=== PATIENT | female | born 1955 | race Caucasian/White ===

== ENCOUNTER 2017-07-20 13:02 | Inpatient (IN) | payer MEDICARE ==
[~2017-07-20] VITALS: Ht 172.7 cm; Wt 101.7 kg
[~2017-07-20 13:02] MED LIST: TYLENOL WITH C1 EACH PO
[2017-07-20] MEDS ORDERED: PIPER-TAZ 3.375 GM 100 ML IV STA (13:47)
[2017-07-20] MEDS ORDERED: VANCOMYCIN 1GM/NS 250 ML 250 ML IV SCH (14:45)
[2017-07-20] MEDS ORDERED: AMITRIPTYLINE H10 MG PO (16:37)
[2017-07-20] MEDS ORDERED: JANUVIA100 MG PO (16:39)
[2017-07-20] MEDS ORDERED: VICTOZA 2-0.6 MG/0.1 SQ (16:39)
[2017-07-20] MEDS ORDERED: ULTRAM50 MG PO (16:41)
[2017-07-20] MEDS ORDERED: DIAZEPAM5 MG PO (16:46)
[2017-07-20] MEDS ORDERED: CEFUROXIME AXETIL 250 MG TAB PO SCH (17:00)
--- NOTE | 2017-07-20 17:24 | History and Physical ---
CHIEF COMPLAINT: "I keep falling down". HISTORY OF PRESENT ILLNESS: This is a 61-year-old white woman who presents to [facility] emergency room with complaints of recent falls. The patient states in the last month she has had 3 falls. The first fall was due to lightheadedness and dizziness. Her 2nd and 3rd falls were mechanical in nature. She states her last fall, which occurred 4 days prior to visit, resulted in a laceration of plantar aspect of her right 5th toe. The patient was seen in her primary care physician's office earlier today, namely myself, Dr. Mcgraw, and she was diagnosed with orthostasis secondary to autonomic dysfunction. The patient has a history of type 2 diabetes mellitus with severe diabetic peripheral neuropathy. The patient is also having tobacco disorder. The patient states in the last 4 days, she has had redness and swelling of her right foot that has moved superiorly. The patient denied any history of fever or chills, but states she does feel ill. Blood work done today revealed a white blood cell count of 13,400 with 72% segmented neutrophils. Hemoglobin 13.4 grams per dL. The patient was found to have a BUN and creatinine of 12 and 0.6 respectively. AST and ALT were 50 and 53 respectively. Potassium 3.5. X-ray of the right foot did not reveal any fracture or malalignment, but did reveal mild degenerative spurring at the plantar fascial origin. The patient was admitted for further evaluation and treatment. REVIEW OF SYSTEMS: GENERAL: No fever or chills, but the patient states she felt ill for the last 2 days. HEENT: No headaches, no vision changes CARDIOVASCULAR: No chest pain, shortness of breath or cough. GI: No nausea, vomiting or constipation. : No UTI symptoms. NEUROMUSCULAR: Complains of complete numbness in her feet as well as her hands. The patient states that she has had episodes of lightheadedness and dizziness when she stands up abruptly. PAST MEDICAL HISTORY: 1. Type 2 diabetes mellitus with severe diabetic peripheral neuropathy. 2. Tobacco abuse. 3. Obesity. 4. Fatty liver disease. 5. Hypertriglyceridemia. 6. Vitamin D deficiency. 7. Restless leg syndrome. 8. Orthostasis secondary to autonomic dysfunction. 9. Autonomic dysfunction secondary to diabetic peripheral neuropathy. PAST SURGICAL HISTORY: 1. section x3. 2. Left foot surgery (tendon release). 3. Laparoscopic cholecystectomy. 4. Total abdominal hysterectomy. ALLERGIES: 1. SULFA ANTIBIOTICS. 2. ASPIRIN. FAMILY HISTORY: Noncontributory. SOCIAL HISTORY: She is single and lives with her mother. She has 3 adult children. The patient is unemployed and receiving disability benefits. The patient denies any alcohol use, but she smokes tobacco heavily. HOME MEDICATIONS: 1. Amitriptyline 200 mg nightly. 2. Victoza 1.8 mg subcutaneously daily. 3. Januvia 100 mg daily. 4. Invokana 300 mg daily. 5. Tramadol 50 mg b.i.d. p.r.n. pain. 6. Diazepam 10 mg nightly p.r.n. insomnia. PHYSICAL EXAMINATION GENERAL: She is awake and alert and oriented. She is disheveled and unkempt. VITAL SIGNS: Blood pressure 128/58 supine and standing it is 80/42. Pulse lying down is 88, standing is 75. Respiratory rate 16. Oxygen saturation 95% on room air. Temperature 98.3. Height is 5 feet 7 inches, weight is 226 pounds, calculated body mass index of 34. Nonfasting finger stick glucose is 257. INTEGUMENT: Skin is warm and dry. No pallor, jaundice, diaphoresis. HEENT: Anicteric sclerae with moist mucous membranes. The patient has hoarse smoker's voice. NECK: Supple. CARDIOVASCULAR: Distant heart sounds, tachycardic rate and regular rhythm. LUNGS: No rales and no rhonchi. No wheezes. ABDOMEN: Obese, benign. EXTREMITIES: No edema. The patient has tobacco-stained finger nails. She has severe onychomycosis of bilateral feet. The patient has a deep laceration in the plantar aspect of her right 5th toe and there is surrounding erythema on the right foot, particularly the dorsal aspect which moves superiorly to the right lower leg. No pinprick sensation in the plantar aspect of bilateral feet. DIAGNOSES 1. Right foot laceration with surrounding cellulitis. 2. Type 2 diabetes mellitus with diabetic peripheral neuropathy. 3. Tobacco abuse. 4. Orthostasis secondary to autonomic dysfunction. 5. Autonomic dysfunction secondary to diabetic peripheral neuropathy. 6. Obesity. Calculated body mass index 34. 7. Fatty liver disease. PLAN: 1. Highly recommend tobacco cessation. 2. Wound care to the right fifth toe laceration. 3. Intravenous antibiotics for the patient's right foot cellulitis. 4. Blood glucose control. I spent 45 minutes in the care of this patient. Job#: [id number] GH
[2017-07-20] MEDS: NICOTINE 21 MG/EA PATCH TOP SCH (17:30)
[2017-07-20] MEDS: CEFEPIME HCL 1 GM VIAL IV SCH (17:50)
[2017-07-20] MEDS ORDERED: invokana PO (17:53)
[2017-07-20 17:55] VITALS: BP 133/75
[2017-07-20 18:00] VITALS: BP 133/75
[2017-07-20] MEDS ORDERED: DEXTROSE 50% SYRINGE 50 ML IV PRN (18:15)
[2017-07-20] MEDS: INSULIN LISPRO 100 UNIT/1 ML 3ML VIAL SQ SCH ×2 (18:30→21:33)
[2017-07-20] MEDS: VANCOMYCIN 1GM/NS 250 ML 250 ML IV SCH (18:30)
[2017-07-20 20:00] VITALS: BP 126/77
[2017-07-20 20:11] VITALS: BP 126/77
[2017-07-20] MEDS ORDERED: AMITRIPTYLINE HCL 10 MG TAB PO SCH (21:00)
[2017-07-20] MEDS: DIAZEPAM 5 MG TAB PO SCH (21:33)
[2017-07-20] MEDS: AMITRIPTYLINE HCL 25 MG TAB PO SCH (21:33)
[2017-07-21] VITALS (7 sets, daily range): BP systolic 108–140; BP diastolic 58–83
[2017-07-21] MEDS: CEFEPIME HCL 1 GM VIAL IV SCH ×2 (04:52→17:15)
[2017-07-21] MEDS: VANCOMYCIN 1GM/NS 250 ML 250 ML IV SCH ×2 (04:52→17:15)
[2017-07-21 07:01] LABS: BASOPHILS % 0.2 % (0.0-1.0); EOSINOPHILS # (AUTO) 0.1 (0.0-0.4); EOSINOPHILS % 0.8 % (0.0-6.0); HEMATOCRIT 35.6 % (34.2-44.1); HEMOGLOBIN 11.6 g/dL (12.0-16.0); LYMPHOCYTES # (AUTO) 3.5 (1.0-3.2); LYMPHOCYTES % 26.6 % (18.0-39.1); MEAN CORPUSCULAR HEMOGLOBIN 31.4 pg (28-32); MEAN CORPUSCULAR HGB CONC 32.6 g/dL (31-35); MEAN CORPUSCULAR VOLUME 96.2 fL (81-99); MONOCYTES # (AUTO) 0.8 (0.2-0.8); MONOCYTES % 5.7 % (4.4-11.3); NEUTROPHILS # (AUTO) 8.8 (2.1-6.9); NEUTROPHILS % 66.2 % (38.7-80.0); PLATELET COUNT 185 x10e3/uL (140-360); RED CELL DISTRIBUTION WIDTH 14.4 % (11.7-14.4)
[2017-07-21 07:31] LABS: ALANINE AMINOTRANSFERASE 46 IU/L (0-55); ALBUMIN 2.7 g/dL (3.5-5.0); ALBUMIN/GLOBULIN RATIO 0.8 (0.8-2.0); ALKALINE PHOSPHATASE 84 IU/L (40-150); ANION GAP 11.5 mmol/L (8-16); BLOOD UREA NITROGEN 13 mg/dL (7-26); BUN/CREATININE RATIO 17 (6-25); CALCIUM 8.4 mg/dL (8.4-10.2); CARBON DIOXIDE 25 mmol/L (22-29); CHLORIDE 105 mmol/L (98-107); CREATININE, SERUM 0.77 mg/dL (0.57-1.11); EST GLOMERULAR FILTRATION RATE > 60 ML/MIN (60-); GLUCOSE 143 mg/dL (74-118); POTASSIUM 3.5 mmol/L (3.5-5.1); SODIUM 138 mmol/L (136-145)
[2017-07-21] MEDS: INSULIN LISPRO 100 UNIT/1 ML 3ML VIAL SQ SCH ×4 (08:29→21:00)
[2017-07-21] MEDS: SITAGLIPTIN 100 MG TAB PO SCH (08:45)
[2017-07-21] MEDS: CANAGLIFLOZIN 100 MG TABLET PO SCH (08:45)
[2017-07-21] MEDS ORDERED: TRAMADOL HCL 50 MG TAB PO PRN (09:00)
[2017-07-21] MEDS ORDERED: DIAZEPAM 5 MG TAB PO SCH (09:00)
[2017-07-21] MEDS ORDERED: INVOKANA 100 MG PO SCH (09:00)
[2017-07-21] MEDS ORDERED: MUPIROCIN 2% OINT 22 GM TUBE TOP SCH (12:00)
[2017-07-21] MEDS: MUPIROCIN 2% OINT 22 GM TUBE TOP SCH (13:56)
[2017-07-21] MEDS: NICOTINE 21 MG/EA PATCH TOP SCH (17:15)
--- NOTE | 2017-07-21 17:50 | Progress Note ---
DATE: INTERNAL MEDICINE PROGRESS NOTE SUBJECTIVE: Patient is sleeping right now. OBJECTIVE VITAL SIGNS: Blood pressure 126/66, temperature 96.8, heart rate 76 per minute, respiratory rate 18 per minute, and oxygen saturation 96%. EXTREMITIES: Decreased redness of the right foot. LABORATORY STUDIES: On the BMP, sodium 138, potassium 3.5, chloride 105, CO2 25, BUN 13, creatinine 0.77, and glucose 143. On the CBC, white blood count 13.2, hemoglobin 11.6, hematocrit 35.6, and platelet count 185,000. AST 35, ALT 46, total bilirubin 0.6, and alkaline phosphatase 84. FINAL IMPRESSION 1. Right foot cellulitis. 2. Diabetes mellitus type 2 with diabetic neuropathy. 3. Tobacco abuse. 4. Fatty liver disease. PLAN OF TREATMENT: Continue vancomycin 1 gram IV twice a day. Cefepime 1 gram IV twice a day. Nicotine patch 21 mg q. 24h. once a day. Continue monitoring blood sugar a.c. and at bedtime. Continue canagliflozin 100 mg daily, diazepam 10 mg at bedtime, Januvia 100 mg daily, tramadol 50 mg twice a day as needed, amitriptyline 200 mg at bedtime, and mupirocin 1 application twice a day. Job#: [id number] JAYESH
[2017-07-21] MEDS: AMITRIPTYLINE HCL 25 MG TAB PO SCH (21:00)
[2017-07-21] MEDS: DIAZEPAM 5 MG TAB PO SCH (21:00)
[2017-07-22] VITALS (7 sets, daily range): BP systolic 123–144; BP diastolic 71–97
[2017-07-22] MEDS: CEFEPIME HCL 1 GM VIAL IV SCH ×2 (04:30→16:56)
[2017-07-22] MEDS: VANCOMYCIN 1GM/NS 250 ML 250 ML IV SCH ×2 (04:30→16:56)
[2017-07-22 07:27] LABS: BASOPHILS % 0.3 % (0.0-1.0); EOSINOPHILS # (AUTO) 0.1 (0.0-0.4); EOSINOPHILS % 1.2 % (0.0-6.0); HEMOGLOBIN 12.3 g/dL (12.0-16.0); LYMPHOCYTES # (AUTO) 3.7 (1.0-3.2); MEAN CORPUSCULAR HEMOGLOBIN 31.1 pg (28-32); MEAN CORPUSCULAR HGB CONC 32.4 g/dL (31-35); MONOCYTES # (AUTO) 0.7 (0.2-0.8); MONOCYTES % 5.6 % (4.4-11.3); NEUTROPHILS # (AUTO) 7.3 (2.1-6.9); NEUTROPHILS % 61.1 % (38.7-80.0); PLATELET COUNT 190 x10e3/uL (140-360); RED BLOOD COUNT 3.96 x10e6/uL (3.6-5.1); RED CELL DISTRIBUTION WIDTH 14.4 % (11.7-14.4)
[2017-07-22] MEDS: INSULIN LISPRO 100 UNIT/1 ML 3ML VIAL SQ SCH ×4 (07:58→22:19)
[2017-07-22] MEDS: MUPIROCIN 2% OINT 22 GM TUBE TOP SCH ×2 (09:00→15:43)
--- NOTE | 2017-07-22 09:18 | Diagnostic Imaging Report ---
Foot complete CPT code: 76758 Indication: Laceration Technique: Portable A.P., oblique and lateral views of the RIGHT foot obtained. Comparison: None Findings: There is a bandage along the fifth digit. There a speck of dust on the cassette on the lateral image. Calcaneus is intact with a small plantar spur. There are mild degenerative changes of the tibiotalar joint. The midfoot is intact with mild degenerative changes. No evidence of displaced fracture or dislocation involving any of the digits. There is 2 to 3 mm of lateral subluxation of the distal phalanx of the fifth digit relative to the mid phalanx with associated subchondral cyst formation about the joint. IMPRESSION: 1. No evidence of acute fracture. No radiopaque foreign bodies in the soft tissues. 2. Mild degenerative changes of the IP joint of the fifth digit with mild subluxation. Signed by: Dr. Lilli Cee MD on 07/22/2017 9:14 AM
[2017-07-22] MEDS: SITAGLIPTIN 100 MG TAB PO SCH (09:33)
[2017-07-22] MEDS: CANAGLIFLOZIN 100 MG TABLET PO SCH (09:33)
--- NOTE | 2017-07-22 10:25 | Progress Note ---
DATE: NO DICTATION, LENGTH 0:3 This dictation was made in Error. It is supposed to be a Consult note not a Progress Note. Consult note has been dictated. Job#: [id number] RI MTDJose Enrique
--- NOTE | 2017-07-22 10:54 | Consultation ---
DATE OF CONSULTATION: July 22, 2017 REASON FOR CONSULTATION: Right 5th toe wound. HISTORY OF PRESENTING ILLNESS: This is a 61-year-old female with past medical history of type 2 diabetes, peripheral neuropathy, and tobacco abuse who was admitted through the emergency room yesterday after sustaining a fall and causing a laceration on the plantar aspect of the right 5th digit. Patient relates that she has fallen several times over the past 3 to 4 days. She noticed increased redness and swelling to the digit and decided to go to her primary care office where x-rays were taken and she was instructed to be admitted to the hospital for IV antibiotics. She relates that she has no nausea, vomiting, fever, chills, chest pain, or shortness of breath. No other pedal complaints at this time. PAST MEDICAL HISTORY: Type 2 diabetes, peripheral neuropathy, hypertriglyceridemia. SURGICAL HISTORY: , left foot surgery, cholecystectomy, hysterectomy. ALLERGIES: TO SULFA AND ASPIRIN. FAMILY HISTORY: Noncontributory. SOCIAL HISTORY: Patient relates to smoking approximately one-half pack day. Lives at home with her mother and is unemployed. MEDICATIONS: Per the chart. PHYSICAL EXAMINATION GENERAL: Alert and oriented x3, in no apparent distress. VITAL SIGNS: Today, temperature is 97.0, heart rate 78, respiratory rate 18, blood pressure 138/72, pulse ox is 97% on room air. FOCUSED LOWER EXTREMITY PHYSICAL EXAM VASCULAR: Dorsalis pedis and posterior tibial pulses are faintly palpable. Capillary refill time is approximately 3 to 4 seconds to all digits. Mild edema is noted to the patient's right 5th digit with no ecchymosis. There is less than 2 cm of bertram-wound erythema, edema, or warmth. NEUROLOGICAL: Sensation is absent to light touch bilaterally. MUSCULOSKELETAL: Negative pain on palpation. DERMATOLOGICAL: A superficial macerated laceration is noted on the plantar aspect of the 5th metatarsophalangeal joint. The wound does not probe deep. There is negative drainage. Less than 2 cm of bertram-wound erythema, edema, and warmth is noted. LABORATORY DATA: White blood cell count is 11.9, down from 13.2, hemoglobin 12.3, hematocrit 38.0, platelet count 190, neutrophil percentage is 61. Glucose 139. ASSESSMENT 1. Right foot laceration with cellulitis. 2. Type 2 diabetes. 3. Peripheral neuropathy. 4. Tobacco abuse. PLAN: Patient was seen and evaluated. Discussed condition and treatment options with patient in detail. At this point, will recommend x-ray evaluation of the right foot to evaluate for right 5th digit fracture. Will also order wound cultures to determine antibiotic management afterwards. At the moment, it does not appear that the patient will need any type of extensive debridement or amputation. Will continue with local wound care with Betadine wet-to-dry dressing changes daily. Agree with current IV antibiotics. The podiatry service will continue to monitor as an inpatient. Job#: [id number] JULISA
--- NOTE | 2017-07-22 15:50 | Progress Note ---
DATE: INTERNAL MEDICINE PROGRESS NOTE She is doing well today. No significant complaints. Apparently, she fell last night and did not tell anybody. She hit her knees. She has no knee pain today. PHYSICAL EXAMINATION VITALS: Blood pressure 123/71, temperature 97.5, heart rate 75 per minute, respiratory rate 20 per minute, oxygen saturation 98%. On the BMP, sodium 138, potassium 3.5, chloride 105, CO2 25, BUN 13, creatinine 0.77, glucose 143. On the CBC, white blood count 11.9, hemoglobin 12.3, hematocrit 38, and platelet count 180,000. AST 35, ALT 46, total bilirubin 0.6, alkaline phos 54. FINAL IMPRESSION 1. Cellulitis of the right foot. 2. Diabetes mellitus, type 2 with diabetic neuropathy. 3. Tobacco abuse. 4. Fatty liver. PLAN OF TREATMENT: Continue vancomycin 1 g IVPB twice a day. Cefepime 1 g IVPB twice a day. NicoDerm patch 21 mg q.24 h. Continue monitoring blood sugar a.c. and at night. Continue 100 mg daily. Diazepam 10 mg at bedtime. Januvia 100 mg daily. Tramadol 50 mg twice a day as needed. Amitriptyline 200 mg at bedtime. Mupirocin twice a day. We are going to order bilateral knee x-ray because of the injury she had last night. Job#: [id number] UT
--- NOTE | 2017-07-22 16:25 | Diagnostic Imaging Report ---
Knee limited right CPT code: 62492 Indication: Fall. Technique: Portable AP and lateral views obtained of the right knee. Comparison: None Findings: Moderate patellofemoral osteoarthritis. Mild to moderate medial and lateral compartment osteoarthritis. No evidence of fracture, dislocation, or focal osseous lesion. Chondrocalcinosis is present. There is a small joint effusion. IMPRESSION: No acute fracture or dislocation. Small joint effusion. Osteoarthritis, most severe in the patellofemoral compartment. Signed by: Dr. Lilli Cee MD on 07/22/2017 4:21 PM
--- NOTE | 2017-07-22 16:26 | Diagnostic Imaging Report ---
Knee limited left CPT code: 35271 Indication: Fall. Technique: Portable AP and lateral view obtained of the left knee. Comparison: None Findings: Mild to moderate patellofemoral compartment narrowing and lateral compartment narrowing. There is prominence of the tibial spines. No acute fracture or dislocation. Small joint effusion. No focal osseous lesions. IMPRESSION: Degenerative changes of the knee with small joint effusion. No acute fracture or dislocation. Signed by: Dr. Lilli Cee MD on 07/22/2017 4:22 PM
[2017-07-22] MEDS: NICOTINE 21 MG/EA PATCH TOP SCH (16:56)
[2017-07-22] MEDS: AMITRIPTYLINE HCL 25 MG TAB PO SCH (21:00)
[2017-07-22] MEDS: DIAZEPAM 5 MG TAB PO SCH (21:00)
[2017-07-23] VITALS: BP 161/86
[2017-07-23 04:00] VITALS: BP 108/72
[2017-07-23] MEDS ORDERED: SODIUM CHLORIDE 0.9% 250ML 250 ML ONE (04:25)
[2017-07-23] MEDS: CEFEPIME HCL 1 GM VIAL IV SCH (04:30)
[2017-07-23] MEDS: VANCOMYCIN 1GM/NS 250 ML 250 ML IV SCH (04:30)
[2017-07-23 07:04] LABS: BASOPHILS % 0.4 % (0.0-1.0); EOSINOPHILS # (AUTO) 0.2 (0.0-0.4); EOSINOPHILS % 1.4 % (0.0-6.0); HEMATOCRIT 36.8 % (34.2-44.1); HEMOGLOBIN 12.1 g/dL (12.0-16.0); LYMPHOCYTES # (AUTO) 3.5 (1.0-3.2); LYMPHOCYTES % 31.6 % (18.0-39.1); MEAN CORPUSCULAR HEMOGLOBIN 31.2 pg (28-32); MEAN CORPUSCULAR HGB CONC 32.9 g/dL (31-35); MEAN CORPUSCULAR VOLUME 94.8 fL (81-99); MONOCYTES # (AUTO) 0.6 (0.2-0.8); MONOCYTES % 5.4 % (4.4-11.3); NEUTROPHILS # (AUTO) 6.6 (2.1-6.9); PLATELET COUNT 211 x10e3/uL (140-360); RED BLOOD COUNT 3.88 x10e6/uL (3.6-5.1); RED CELL DISTRIBUTION WIDTH 14.2 % (11.7-14.4)
[2017-07-23 07:48] LABS: ALANINE AMINOTRANSFERASE 30 IU/L (0-55); ALBUMIN 2.9 g/dL (3.5-5.0); ALBUMIN/GLOBULIN RATIO 0.8 (0.8-2.0); ALKALINE PHOSPHATASE 73 IU/L (40-150); ANION GAP 12.1 mmol/L (8-16); BLOOD UREA NITROGEN 16 mg/dL (7-26); BUN/CREATININE RATIO 20 (6-25); CALCIUM 9.2 mg/dL (8.4-10.2); CARBON DIOXIDE 26 mmol/L (22-29); CHLORIDE 105 mmol/L (98-107); EST GLOMERULAR FILTRATION RATE > 60 ML/MIN (60-); GLUCOSE 136 mg/dL (74-118); POTASSIUM 4.1 mmol/L (3.5-5.1); SODIUM 139 mmol/L (136-145)
[2017-07-23 08:00] VITALS: BP 147/98
[2017-07-23] MEDS: SITAGLIPTIN 100 MG TAB PO SCH (08:25)
[2017-07-23] MEDS: CANAGLIFLOZIN 100 MG TABLET PO SCH (08:25)
[2017-07-23] MEDS: MUPIROCIN 2% OINT 22 GM TUBE TOP SCH (08:34)
[2017-07-23] MEDS: INSULIN LISPRO 100 UNIT/1 ML 3ML VIAL SQ SCH ×2 (08:35→12:40)
--- NOTE | 2017-07-23 08:53 | Progress Note ---
DATE: SUBJECTIVE: This is a 61-year-old female with past medical history of type 2 diabetes, peripheral neuropathy, and tobacco abuse, who is admitted for a fifth toe wound. Patient relates to no pain. On this visit, patient denies nausea, vomiting, fever, chills, chest pain, or shortness of breath. Patient relates that she did have a fall in the room, but did not inform anyone, and x-rays were ordered. No other acute issues overnight. PROBLEM-FOCUSED LOWER EXTREMITY PHYSICAL EXAMINATION: VASCULAR: Dorsalis pedis and posterior tibial pulses are faintly palpable. Capillary refill time is approximately 3 to 4 seconds to all the digits. Minimal edema. Negative ecchymosis, negative erythema, negative warmth to the right fifth digit. NEUROLOGICAL: Sensation is absent to light touch bilaterally. MUSCULOSKELETAL: Negative pain on palpation. DERMATOLOGICAL: A superficial laceration is noted to the plantar aspect of the fifth metatarsophalangeal joint. The wound does not probe deep. It is granular. Maceration has improved since yesterday. No drainage is noted. Less than 2 cm of periwound erythema, edema, and warmth is noted. LABS: Today, white blood cell count is 10.9, hemoglobin 12, hematocrit 36.8. Sodium 139, potassium 4.1, chloride 105, CO2 26, BUN 16, creatinine 0.8, glucose 136. X-RAYS: Two views were taken of the patient's right foot, which reveals no evidence of acute fracture. No foreign bodies in the soft tissue. Negative soft tissue emphysema. ASSESSMENT: 1. Right foot laceration with cellulitis, improving. 2. Type 2 diabetes and peripheral neuropathy. 3. Tobacco abuse. PLAN: Patient was seen and evaluated. Discussed condition and treatment options with patient in detail. Will continue intravenous antibiotics with vanc and Zosyn, and local wound care with Betadine wet-to-dry. Patient is stable for this wound to be treated as an outpatient with p.o. antibiotics. Per podiatry standpoint, patient may be discharged for followup in 3 to 5 days with oral antibiotics and local wound care with Betadine wet-to-dry dressings. Job#: [id number]
--- NOTE | 2017-07-23 11:04 | Discharge Summary ---
ADMIT DIAGNOSES 1. Right foot laceration with surrounding cellulitis. 2. Type 2 diabetes mellitus with diabetic peripheral neuropathy. 3. Tobacco abuse. 4. Orthostasis secondary to autonomic dysfunction. 5. Autonomic dysfunction secondary to diabetic peripheral neuropathy. 6. Obesity. Calculated body mass 34. 7. Fatty liver disease. DISCHARGE DIAGNOSES 1. Right foot laceration with surrounding cellulitis, resolving. 2. Type 2 diabetes mellitus with diabetic peripheral neuropathy. 3. Tobacco abuse. 4. Orthostasis secondary to autonomic dysfunction, resolved. 5. Autonomic dysfunction secondary to diabetic peripheral neuropathy. 6. Obesity. Calculated body mass 34. 7. Fatty liver disease. 8. Escherichia coli urinary tract infection. HOSPITAL COURSE: This is a 61-year-old white woman who was initially admitted to [facility] with the diagnosis of right foot laceration with surrounding cellulitis. This woman also has a history of type 2 diabetes mellitus with severe diabetic peripheral neuropathy. Moreover, this patient has autonomic dysfunction secondary to diabetic peripheral neuropathy. The patient's autonomic dysfunction unfortunately causes the patient to experience episodes of orthostasis. During this hospitalization, the patient received intravenous antibiotics, namely vancomycin and cefepime, which she tolerated quite well. Also, during this hospitalization she was seen by wrapper stemmer operator, namely Dr. Danita Aldana, who helped direct the patient's wound care. Also, during this hospitalization the patient had a urine culture done, which revealed the presence of E. coli bacterial species that was found to be pansensitive. The patient's condition on discharge was stable. DISCHARGE MEDICATIONS 1. Ciprofloxacin 500 mg p.o. b.i.d. for 7 days. 2. Augmentin 875 mg p.o. b.i.d. for 7 days. 3. Sitagliptin 100 mg daily. 4. Diazepam 10 mg at bedtime for insomnia/anxiety. 5. Amitriptyline 200 mg at bedtime. 6. NicoDerm patch 21 mg strength 1 patch daily. 7. Tramadol 50 mg b.i.d. p.r.n. pain. FOLLOWUP INSTRUCTIONS: The patient was instructed to follow up with Dr. Aldana, her wrapper stemmer operator, on July. The patient was instructed to follow up with her primary care physician, namely myself, Dr. Chavez Sneed, within the next 10-14 days. CHAVEZ SNEED MD Job#: [id number] DEUCE DENNEY
== END 2017-07-23 12:44 | disposition home or self-care (01) | DRG 603 ==
LOC: FSED 13:02 → MED/SURG2 16:55
PROVIDERS: ADMIT Internal Medicine; ATTEND Internal Medicine
DX: L03.031 Cellulitis of right toe (principal); N39.0 Urinary tract infection, site not specified; S91.111A Laceration without foreign body of right great toe without damage to nail, initial encounter; Z91.81 History of falling; E11.43 Type 2 diabetes mellitus with diabetic autonomic (poly)neuropathy; Z72.0 Tobacco use; E66.9 Obesity, unspecified; I95.1 Orthostatic hypotension; Z68.34 Body mass index [BMI] 34.0-34.9, adult; K76.0 Fatty (change of) liver, not elsewhere classified; E78.1 Pure hyperglyceridemia; Z88.6 Allergy status to analgesic agent; Z88.2 Allergy status to sulfonamides; M25.562 Pain in left knee; M25.561 Pain in right knee; B96.20 Unspecified Escherichia coli [E. coli] as the cause of diseases classified elsewhere; W18.30XA Fall on same level, unspecified, initial encounter; Y93.9 Activity, unspecified; Y92.230 Patient room in hospital as the place of occurrence of the external cause
CPT/HCPCS: 36415; 80053; 80202; 82948; 85025; 87040; 87086; 87186; 99284; J0692; J2543; J3370; J7050

== ENCOUNTER → 2017-10-31 | Outpatient (CLI) | payer OTHER, MEDICARE ==
[~2017-10-31] MED LIST changes: +AMITRIPTYLINE H10 MG PO; +DIAZEPAM5 MG PO; +JANUVIA100 MG PO; +ULTRAM50 MG PO; +VICTOZA 2-0.6 MG/0.1 SQ; +invokana PO
== END ==
LOC: RESP 09:27
PROVIDERS: ATTEND Internal Medicine
DX: J41.0 Simple chronic bronchitis (principal)
CPT/HCPCS: 94060; 94727; 94729

== ENCOUNTER → 2018-09-23 | Outpatient (CLI) | payer MEDICARE ==
[~2018-09-23] MED LIST changes: +AMITRIPTYLINE H25 MG PO; +BIOTIN300 MCG PO; +CHROMIUM PIC1000 MCG PO; +DIAZEPAM10 MG PO; +FLAX SEED OIL1000 MG PO; +FOLIC ACID1 MG PO; +INVOKANA PO; +L-LYSINE500 M1 PO; +TRAMADOL HCL100 MG PO; +VICTOZA 3-0.6 MG/0.1 SC; +VIT B12 PO; +VIT B6 PO; +VIT C PO; +VIT D3 PO
--- NOTE | 2018-09-23 15:20 | Diagnostic Imaging Report ---
Exam: Left hip 2 views History: Left hip contusion, status post fall Comparison: None. Findings: No acute, displaced fracture or dislocation. Femoral head projects appropriately over the acetabulum. Mild degenerative arthrosis.. Soft tissues are unremarkable. Impression: No acute osseous abnormality. Signed by: Dr. Angel Viveros M.D. on 09/23/2018 3:17 PM
== END ==
LOC: RAD 14:33
PROVIDERS: ATTEND Internal Medicine
DX: S70.02XA Contusion of left hip, initial encounter (principal)

== ENCOUNTER → 2018-09-27 | Day surgery (SDC) | payer MEDICARE ==
[~2018-09-27] MED LIST changes: +FENTANYL CITRATE/PF 100MCG/2 ML INJ ONE; +GLUCAGON FOR INJ 1 MG VIAL ONE; +HYOSCYAMINE 0.125 MG TAB ONE; +LIDOCAINE HCL 2% LOCAL INJ 5 ML SDV VIAL INJ ONE; +MIDAZOLAM HCL 2 MG/2 ML VIAL ONE; +PROPOFOL IV EMULSION 10 MG/ML 50 ML VIAL ONE
--- OUTSIDE RECORDS SUMMARY | 2018-09-27 07:23 | XMS REPORT ---
[facility] Address Unknown Phone Unavailable Care Team Providers Care Control Director Name Role Phone CATRACHITO SNEED Unavailable Unavailable Problems This patient has no known problems. Allergies, Adverse Reactions, Alerts This patient has no known allergies or adverse reactions. Medications This patient has no known medications. Results Test Description Test Time Test Comments Text Results Atomic Results Result Comments HIP LEFT 2-3 VW (+/- PELVIS) 2018-09-23 15:15:00 [place] [address] Patient Name: MALATHI TOBIAS MR #: [id number] : 1955 Age/Sex: 63/F Req #: [id number] Adm Physician: Ordered by: CATRACHITO SNEED MD Report #: [id number] Location: [facility] Room/Bed: Procedure: [id number] DX/HIP LEFT 2-3 VW (+/- PELVIS) Exam Date: Exam Time: REPORT STATUS: Signed Exam: Left hip 2 views History: Left hip contusion, status post fall Comparison: None. Findings: No acute, displaced fracture or dislocation. Femoral head projects appropriately over the acetabulum. Mild degenerative arthrosis.. Soft tissues are unremarkable. Impression: No acute osseous abnormality. Signed by: Dr. Charly Carter M.D. on 09/23/2018 3:17 PM Dictated By: CHARLY CARTER MD 16 Transcribed By: ASPEN on 09/23/181516 COPY TO: CATRACHITO SNEED MD KNEE RIGHT 1-2 VIEWS [place] [id number] [place] [address] Patient Name: MALATHI TOBIAS MR #: [id number] : 1955 Age/Sex: 61/F Req #: [id number] Adm Physician: CATRACHITO SNEED MD Ordered by: LEVON ARMAS MD Report #: [id number] Location: MED/SURG2 Room/Bed: [facility] Procedure: [id number] DX/KNEE RIGHT 1-2 VIEWS Exam Date: 07/22/17 Exam Time: 1600 REPORT STATUS: Signed Knee limited right CPT code: 12689 Indication: Fall. Technique: Portable AP and lateral views obtained of the right knee. Comparison: None Findings: Moderate patellofemoral osteoarthritis. Mild to moderate medial and lateral compartment osteoarthritis. No evidence of fracture, dislocation, or focal osseous lesion. Chondrocalcinosis is present. There is a small joint effusion. IMPRESSION: No acute fracture or dislocation. Small joint effusion. Osteoarthritis, most severe in the patellofemoral compartment. Signed by: Dr. Lilli Cee MD on 07/22/2017 4:21 PM Dictated By: LILLI CEE MD 20 Transcribed By: ASPEN on 07/22/171620 COPY TO: LEVON ARMAS MD KNEE LEFT 1-2 VIEWS [place] [address] Patient Name: MALATHI TOBIAS MR #: [id number] : 1955 Age/Sex: 61/F Req #: [id number] Adm Physician: CATRACHITO SNEED MD Ordered by: LEVON ARMAS MD Report #: [id number] Location: MED/SURG2 Room/Bed: [facility] Procedure: [id number] DX/KNEE LEFT 1-2 VIEWS Exam Date: 07/22/17 Exam Time: 1600 REPORT STATUS: Signed Knee limited left CPT code: 37423 Indication: Fall. Technique: Portable AP and lateral view obtained of the left knee. Comparison: None Findings: Mild to moderate patellofemoral compartment narrowing and lateral compartment narrowing. There is prominence of the tibial spines. No acute fracture or dislocation. Small joint effusion. No focal osseous lesions. IMPRESSION: Degenerative changes of the knee with small joint effusion. No acute fracture or dislocation. Signed by: Dr. Lilli Cee MD on 07/22/2017 4:22 PM Dictated By: LILLI CEE MD 162 Transcribed By: ASPEN on 07/22/17 1622 COPY TO: LEVON ARMAS MD [place] [address] Patient Name: MALATHI TOBIAS MR #: [id number] : 1955 Age/Sex: 61/F Req #: [id number] Adm Physician: CATRACHITO SNEED MD Ordered by: CATHIE BELTRAN DPM Report #: [id number] Location: MED/SURG2 Room/Bed: [facility] Procedure: [id number] DX/FOOT RIGHT COMPLETE Exam Date: 07/22/17 Exam Time: 0845 REPORT STATUS: Signed Foot complete CPT code: 93295 Indication: Laceration Technique: Portable A.P., oblique and lateral views of the RIGHT foot obtained. Comparison: None Findings: There is a bandage along the fifth digit. There a speck of dust on the cassette on the lateral image. Calcaneus is intact with a small plantar spur. There are mild degenerative changes of the tibiotalar joint. The midfoot is intact with mild degenerative changes. No evidence of displaced fracture or dislocation involving any of the digits. There is 2 to 3 mm of lateral subluxation of the distal phalanx of the fifth digit relative to the mid phalanx with associated subchondral cyst formation about the joint. IMPRESSION: 1. No evidence of acute fracture. No radiopaque foreign bodies in the soft tissues. 2. Mild degenerative changes of the IP joint of the fifth digit with mild subluxation. Signed by: Dr. Lilli Cee MD on 07/22/2017 9:14 AM Dictated By: LILLI CEE MD 3 Transcribed By: ASPEN on 07/22/17913 COPY TO: CATHIE BELTRAN DPM
[2018-09-27 12:11] LABS: WBC,FECAL (FECAL LACTOFERRIN) NEGATIVE (NEGATIVE)
[2018-09-27 12:50] VITALS: BP 128/74
[2018-09-27 14:38] LABS: C DIFFICILE TOXIN A&B AMP PROB **POSITIVE** (NEGATIVE)
--- NOTE | 2018-09-27 16:24 | Operative Report ---
DATE OF PROCEDURE: 09/27/2018 SURGEON: César Barboza MD PROCEDURE: Esophagogastroduodenoscopy with biopsies and colonoscopy with polypectomy and biopsies. INDICATIONS FOR EGD: Heartburn, bloating. INDICATIONS FOR COLONOSCOPY: Colorectal cancer screening, positive Cologuard test. MEDICATIONS: The patient was done under MAC, please see anesthesiologist's note. PROCEDURE IN DETAIL: With the patient in left lateral decubitus position, flexible fiberoptic Olympus gastroscope was introduced into the esophagus under direct visualization without any difficulty. There was some patchy erythema noted in distal esophagus. A minute tongue of velvety red mucosa was noted to extend proximally from the GE junction and that was biopsied to rule out Tripp's. The GE junction was nodular and it was biopsied. The scope was then advanced with ease into the stomach and mucosa overlying the antrum and the body revealed some patchy erythema and [id number] edema and biopsies were obtained and sent to stain for H pylori. The pylorus was of normal contour and shape, it was intubated with ease and the scope was advanced all the way to the second portion of the duodenum. Biopsies were obtained from the second portion and the duodenal bulb to rule out sprue. The scope was then withdrawn back into the stomach and retroflexed and mucosa overlying the fundus and the cardia appeared to be within normal limits. The scope was then straightened out, it was subsequently withdrawn. The patient tolerated procedure well. IMPRESSION: 1. Distal esophagitis, mild. 2. Rule out Tripp's esophagus. 3. Nodular GE junction, biopsied. 4. Gastritis, biopsied, biopsies sent to stain for H pylori. 5. Rule out sprue. PLAN: Follow up histology. Initiate Protonix 40 mg one p.o. q.a.m. a.c. PROCEDURE IN DETAIL: The patient was then turned around and after adequate lubrication of the anal canal, a flexible fiberoptic Olympus colonoscope was inserted into the rectum with ease and advanced all the way to the cecum. One polyp was removed per cold biopsy forceps and an additional polyp was removed per cold polypectomy snare from the cecum. An approximately 1.5 cm sessile polypoid lesion was noted also in the cecum and that was removed per snare electrocautery and site was hemoclipped x2. The scope was then withdrawn slowly and one polyp was snared from the ascending colon. The transverse appeared to be within normal limits. Mild inflammatory changes were noted in the left colon and random biopsies were obtained. Two polyps were hot biopsied from the descending colon, two polyps were hot biopsied from the sigmoid colon, four polyps were hot biopsied from the rectum. The scope was then retroflexed into the distal rectum and small internal hemorrhoids were noted, none of which was actively bleeding. The scope was then straightened out, it was subsequently withdrawn after securing an adequate stool specimen that was sent for the appropriate stool studies. The patient tolerated procedure well. IMPRESSION: 1. Cecal sessile polypoid mass approximately 1.5 cm in size, snared and site hemoclipped x2. 2. Cecal polyps x2, one cold biopsied and one snared. 3. Descending colon polyps x2, hot biopsied. 4. Mild patchy left-sided colitis. 5. Sigmoid colon polyps x2, hot biopsied. 6. Rectal polyps x4, hot biopsied. 7. Internal hemorrhoids, none actively bleeding. A total of 13 polyps were removed. PLAN: Follow up histology. Follow up stool studies. Initiate Bentyl 10 mg one p.o. t.i.d. and VSL#3 one p.o. b.i.d. Timing of followup colonoscopy pending pathology report. César Barboza MD [facility] [place] /[id number] cc: Chavez Mcgraw MD
== END | disposition home or self-care (01) ==
LOC: OR 07:03
PROVIDERS: ATTEND Internal Medicine Gastroenterology
DX: K59.00 Constipation, unspecified (principal); D12.0 Benign neoplasm of cecum; D12.2 Benign neoplasm of ascending colon; D12.4 Benign neoplasm of descending colon; D12.5 Benign neoplasm of sigmoid colon; K62.1 Rectal polyp; K51.50 Left sided colitis without complications; K22.70 Barrett's esophagus without dysplasia; K29.50 Unspecified chronic gastritis without bleeding; K21.0 Gastro-esophageal reflux disease with esophagitis; K63.89 Other specified diseases of intestine; K64.8 Other hemorrhoids; R53.1 Weakness; E11.9 Type 2 diabetes mellitus without complications; F17.210 Nicotine dependence, cigarettes, uncomplicated; Z88.6 Allergy status to analgesic agent; Z88.2 Allergy status to sulfonamides; Z01.810 Encounter for preprocedural cardiovascular examination; Z68.33 Body mass index [BMI] 33.0-33.9, adult; Z80.0 Family history of malignant neoplasm of digestive organs
CPT/HCPCS: 36415; 43239; 45380; 45384; 45385; 82948; 83630; 83993; 87045; 87177; 87328; 87493; 93005; J1610; J2001; J2250; J2704; 45378; J3010

== ENCOUNTER → 2019-12-01 | Outpatient (CLI) | payer MEDICARE ==
[~2019-12-01] MED LIST changes: -FENTANYL CITRATE/PF 100MCG/2 ML INJ ONE; -GLUCAGON FOR INJ 1 MG VIAL ONE; -HYOSCYAMINE 0.125 MG TAB ONE; -LIDOCAINE HCL 2% LOCAL INJ 5 ML SDV VIAL INJ ONE; -MIDAZOLAM HCL 2 MG/2 ML VIAL ONE; -PROPOFOL IV EMULSION 10 MG/ML 50 ML VIAL ONE
--- NOTE | 2019-12-01 15:24 | Diagnostic Imaging Report ---
Exam: KNEE RIGHT 1-2 VIEWS History: Right knee pain, fall; osteoarthritis right knee Comparison: Right knee radiographs 07/22/2017 Findings: No acute fractures visualized. No joint malalignment or dislocation. Diffuse osseous demineralization. Tricompartmental degenerative changes with osteophytes and medial compartment joint space narrowing. Small joint effusion with loose bodies in the suprapatellar and posterior joint recesses. Subtle vascular calcifications. Impression: 1. No acute fracture or malalignment. 2. Small joint effusion with scattered loose bodies. 3. Tricompartmental degenerative changes, most notably moderate in the medial compartment with joint space narrowing Signed by: Dante Bond MD on 12/01/2019 3:21 PM
== END ==
LOC: RAD 14:39
PROVIDERS: ATTEND Internal Medicine
DX: M17.11 Unilateral primary osteoarthritis, right knee (principal)

== ENCOUNTER → 2021-07-27 | Day surgery (SDC) | payer MEDICARE ==
[~2021-07-27] MED LIST changes: +ATROPINE SULFATE 1 MG/ML VIAL ONE; +B COMPLEX1 EACH PO; +EPHEDRINE SULFATE INJ 50 MG/ML VIAL ONE; +ESMOLOL HCL 100MG/10ML 10 MG/ML VIAL ONE; +FENTANYL CITRATE/PF 100MCG/2 ML INJ ONE; +GLUCAGON FOR INJ 1 MG VIAL ONE; +JARDIANCE25 MG PO; +LIDOCAINE HCL 2% LOCAL INJ 5 ML SDV VIAL INJ ONE; +MIDAZOLAM HCL 2 MG/2 ML VIAL ONE; +PAROXETINE HCL20 MG PO; +PHENYLEPHRINE HCL 1% 10 MG/ML VIAL ONE; +PROPOFOL IV EMULSION 10 MG/ML 20 ML VIAL ONE; +PROTONIX20 MG PO
[2021-07-27 14:10] VITALS: BP 144/78
== END | disposition home or self-care (01) ==
LOC: OR 09:44
PROVIDERS: ATTEND Internal Medicine Gastroenterology
DX: R19.5 Other fecal abnormalities (principal); D12.3 Benign neoplasm of transverse colon; D12.4 Benign neoplasm of descending colon; K31.7 Polyp of stomach and duodenum; K29.70 Gastritis, unspecified, without bleeding; K21.00 Gastro-esophageal reflux disease with esophagitis, without bleeding; K58.9 Irritable bowel syndrome, unspecified; K62.89 Other specified diseases of anus and rectum; E11.9 Type 2 diabetes mellitus without complications; G62.9 Polyneuropathy, unspecified; F41.9 Anxiety disorder, unspecified; Z88.6 Allergy status to analgesic agent; Z91.013 Allergy to seafood; Z88.8 Allergy status to other drugs, medicaments and biological substances; Z91.048 Other nonmedicinal substance allergy status; Z01.810 Encounter for preprocedural cardiovascular examination; Z01.812 Encounter for preprocedural laboratory examination; Z20.822 Contact with and (suspected) exposure to COVID-19; Z79.899 Other long term (current) drug therapy
CPT/HCPCS: 36415; 43239; 45380; 45384; 45385; 82948; 93005; C9113; J0461; J1610; J2001; J2250; J2370; J2704; J3010; U0002; 45378